=== PATIENT | male | born 1970 | race African-American/Black ===

== ENCOUNTER 2024-11-29 06:39 | Inpatient (IN) | payer OTHER ==
[2024-11-29] MEDS ORDERED: LABETALOL HCL 20 MG/4 ML VIAL ONE (07:34)
[2024-11-29] MEDS: LABETALOL HCL 20 MG/4 ML VIAL IVPUSH ONE ×2 (07:55→10:13)
[2024-11-29 07:58] LABS: BASO % 0.5 % (0-2.0); EOS % 1.2 % (0-4.5); HEMATOCRIT 42.4 % (35.4-49); HEMOGLOBIN 14.5 GM/dL (11.7-16.9); LYMPH % 39.9 % (8-40); MCH 29.9 pg (25.7-33.7); MCHC 34.1 g/dl (32.0-35.9); MEAN CELL VOLUME 87.7 fl (80-96); MEAN PLT VOLUME 7.2 fl (7.5-11.1); MONO % 10.2 % (3.8-10.2); NEUT % 48.2 % (42.8-82.8); PLATELET COUNT 255 10^3/uL (134-434); RBC 4.84 M/mm3 (4.00-5.60); RDW 13.5 % (11.9-15.9); WHITE BLOOD COUNT 5.6 K/mm3 (4.0-10.0)
[2024-11-29 08:08] LABS: PH,URINE 5.5 (5.0-8.0); URINE APPEARANCE CLEAR; URINE BILIRUBIN NEGATIVE (NEGATIVE); URINE COLOR YELLOW; URINE GLUCOSE (UA) NEGATIVE (NEGATIVE); URINE KETONE NEGATIVE (NEGATIVE); URINE LEUK ESTERASE NEGATIVE (NEGATIVE); URINE NITRITE NEGATIVE (NEGATIVE); URINE PROTEIN NEGATIVE (NEGATIVE); URINE UROBILINOGEN 0.2 mg/dL (0.2-1.0)
[2024-11-29 08:14] LABS: POTASSIUM 4.1 mmol/L (3.5-5.1)
[2024-11-29 08:23] LABS: INR 1.03 (0.83-1.09); PROTHROMBIN TIME (PATIENT) 11.3 SEC (9.7-13.0)
[2024-11-29 08:25] LABS: ACTIVATED PTT 31.7 SECONDS (25.2-36.5)
[2024-11-29 08:36] LABS: CALCIUM 8.7 mg/dL (8.5-10.1)
[2024-11-29 08:37] LABS: ALBUMIN 3.4 g/dl (3.4-5.0); BLOOD UREA NITROGEN 13.4 mg/dL (7-18)
[2024-11-29 08:40] LABS: CREATININE 1.2 mg/dL (0.55-1.3)
[2024-11-29 08:41] LABS: BILIRUBIN,TOTAL 0.4 mg/dL (0.2-1); TOT PROT 6.5 g/dl (6.4-8.2)
[2024-11-29 11:04] VITALS: BMI 37.7
[2024-11-29] MEDS: NICARDIPINE 25 MG in DEXTROSE 5%-WATER - 240 ML IVPB SCH (13:19)
[2024-11-29] MEDS: MUPIROCIN 2% TOPICAL OINTMENT FOR DECOLONIZATION NS SCH (18:23)
[2024-11-29] MEDS: ACETAMINOPHEN 1000 MG/100 ML BAG IVPB PRN (19:20)
[2024-11-29] MEDS: CHLORHEXIDINE GLUCONATE 4% CLEANSER FOR DECOLONIZATION TP SCH (21:46)
[2024-11-30 07:27] LABS: BASO % 0.3 % (0-2.0); EOS % 1.7 % (0-4.5); HEMATOCRIT 47.1 % (35.4-49); HEMOGLOBIN 15.8 GM/dL (11.7-16.9); LYMPH % 31.1 % (8-40); MCH 29.4 pg (25.7-33.7); MCHC 33.6 g/dl (32.0-35.9); MEAN CELL VOLUME 87.5 fl (80-96); MEAN PLT VOLUME 7.5 fl (7.5-11.1); MONO % 8.4 % (3.8-10.2); NEUT % 58.5 % (42.8-82.8); PLATELET COUNT 263 10^3/uL (134-434); RBC 5.39 M/mm3 (4.00-5.60); RDW 13.5 % (11.9-15.9); WHITE BLOOD COUNT 6.9 K/mm3 (4.0-10.0)
[2024-11-30 07:41] LABS: POTASSIUM 3.9 mmol/L (3.5-5.1)
[2024-11-30 07:45] LABS: CALCIUM 8.8 mg/dL (8.5-10.1)
[2024-11-30 07:46] LABS: ALBUMIN 3.6 g/dl (3.4-5.0); BLOOD UREA NITROGEN 9.2 mg/dL (7-18); MAGNESIUM 2.3 mg/dL (1.8-2.4)
[2024-11-30 07:48] LABS: PHOSPHOROUS 4.1 mg/dL (2.5-4.9)
[2024-11-30 07:49] LABS: CREATININE 1.2 mg/dL (0.55-1.3)
[2024-11-30 07:50] LABS: BILIRUBIN,TOTAL 0.6 mg/dL (0.2-1)
[2024-11-30] MEDS: DEXTROSE 5%-LACTATED RINGERS 1,000 ML IV SCH (08:47)
[2024-11-30] MEDS: PANTOPRAZOLE SODIUM 40 MG VIAL IVPUSH SCH (09:57)
[2024-11-30] MEDS: NIFEdipine E.R. 30 MG TABLET PO SCH (09:57)
[2024-11-30] MEDS: NIFEdipine E.R. 30 MG TABLET PO ONE (12:54)
[2024-12-01 07:24] LABS: BASO % 0.4 % (0-2.0); EOS % 1.4 % (0-4.5); HEMATOCRIT 48.9 % (35.4-49); HEMOGLOBIN 16.4 GM/dL (11.7-16.9); LYMPH % 34.3 % (8-40); MCH 29.3 pg (25.7-33.7); MCHC 33.5 g/dl (32.0-35.9); MEAN CELL VOLUME 87.6 fl (80-96); MEAN PLT VOLUME 7.5 fl (7.5-11.1); MONO % 9.9 % (3.8-10.2); PLATELET COUNT 277 10^3/uL (134-434); RBC 5.59 M/mm3 (4.00-5.60); RDW 13.6 % (11.9-15.9); WHITE BLOOD COUNT 6.8 K/mm3 (4.0-10.0)
[2024-12-01 07:42] LABS: POTASSIUM 4.3 mmol/L (3.5-5.1)
[2024-12-01 07:49] LABS: CALCIUM 9.1 mg/dL (8.5-10.1)
[2024-12-01 07:50] LABS: ALBUMIN 3.5 g/dl (3.4-5.0); BLOOD UREA NITROGEN 14.4 mg/dL (7-18); MAGNESIUM 2.3 mg/dL (1.8-2.4)
[2024-12-01 07:53] LABS: CREATININE 1.1 mg/dL (0.55-1.3); PHOSPHOROUS 3.7 mg/dL (2.5-4.9)
[2024-12-01 07:54] LABS: BILIRUBIN,TOTAL 0.7 mg/dL (0.2-1); TOT PROT 6.9 g/dl (6.4-8.2)
[2024-12-01] MEDS: NIFEdipine E.R 60 MG TABLET PO SCH (09:31)
[2024-12-01 14:52] VITALS: TEMP 98.3
[2024-12-01] MEDS: NIFEdipine E.R. 30 MG TABLET PO ONE (16:20)
[2024-12-01] MEDS: ATORVASTATIN CA 40 MG TABLET (FP) PO SCH (21:24)
[2024-12-02] MEDS ORDERED: hydrALAZINE HCL 20 MG/ML VIAL IVPUSH PRN (00:53)
[2024-12-02 07:30] LABS: BASO % 0.4 % (0-2.0); EOS % 1.9 % (0-4.5); HEMATOCRIT 47.1 % (35.4-49); HEMOGLOBIN 16.1 GM/dL (11.7-16.9); LYMPH % 34.7 % (8-40); MCH 29.8 pg (25.7-33.7); MCHC 34.1 g/dl (32.0-35.9); MEAN CELL VOLUME 87.4 fl (80-96); MEAN PLT VOLUME 7.4 fl (7.5-11.1); MONO % 12.4 % (3.8-10.2); NEUT % 50.6 % (42.8-82.8); PLATELET COUNT 269 10^3/uL (134-434); RBC 5.39 M/mm3 (4.00-5.60); RDW 13.8 % (11.9-15.9); WHITE BLOOD COUNT 6.1 K/mm3 (4.0-10.0)
[2024-12-02 07:38] LABS: POTASSIUM 4.4 mmol/L (3.5-5.1)
[2024-12-02 07:40] LABS: CALCIUM 8.9 mg/dL (8.5-10.1)
[2024-12-02 07:41] LABS: ALBUMIN 3.4 g/dl (3.4-5.0); MAGNESIUM 2.3 mg/dL (1.8-2.4)
[2024-12-02 07:44] LABS: CREATININE 1.3 mg/dL (0.55-1.3); PHOSPHOROUS 3.8 mg/dL (2.5-4.9)
[2024-12-02 07:46] LABS: BILIRUBIN,TOTAL 0.6 mg/dL (0.2-1); TOT PROT 6.9 g/dl (6.4-8.2)
[2024-12-02] MEDS: NIFEdipine E.R. 90 MG TABLET PO SCH (09:36)
[2024-12-02 14:17] VITALS: PULSE 92; RESP 23
[2024-12-02] MEDS: LABETALOL HCL 100 MG TABLET (FP) PO SCH (14:40)
[2024-12-02 16:42] VITALS: BP 143/91
== END 2024-12-02 16:54 | disposition home or self-care (01) | DRG 64 ==
LOC: JER 06:39 → JERBED 08:03 → JICU 09:31
PROVIDERS: ADMIT Internal Medicine Pulmonary Disease; ATTEND Internal Medicine
DX: I61.9 Nontraumatic intracerebral hemorrhage, unspecified (principal); G93.6 Cerebral edema; I16.1 Hypertensive emergency; I10 Essential (primary) hypertension; Z91.148 Patient's other noncompliance with medication regimen for other reason
CPT/HCPCS: 36415; 70450-TC; 70546-TC; 70553-TC; 80053; 80061; 81003; 82550; 82553; 82962; 83036; 83735; 84100; 84439; 84443; 84484; 85025; 85610; 85730; 86850; 86900; 86901; 93005; 93010; 93306-TC; 97116-GP; 97161-GP; 99291; J0131